=== PATIENT | female | born 1965 | race Caucasian/White ===

== ENCOUNTER → 2016-08-28 | Outpatient (REF) | payer OTHER, SELFPAY | LOC: M LAB REF 16:15 → EEVIPCON 16:15 | PROVIDERS: ATTEND Physician Assistant | DX: L03.114 Cellulitis of left upper limb (principal) ==

== ENCOUNTER → 2018-05-08 | Outpatient (CLI) | payer OTHER ==
[~2018-05-08] MED LIST: EFFE150C2; PERC5TAB12 PO
--- NOTE | 2018-05-12 09:17 | REP ---
MR LUMBAR SPINE WITHOUT CONTRAST: HISTORY: L1 fracture. COMPARISON: 03/14/2017 Decrease signal intensity on T2-weighted images is present in the T12-L1, L1-2 and L4-5 intervertebral discs. The discs are decreased in height. These findings are consistent with disc degeneration. There is no disc bulge or herniation at the L1-2 through L3-4 and L5-S1 levels. There is hypertrophy of the posterior articulating facets at the L3-4 and L5-S1 levels. The nerves exit the neural foramina without compression. A diffuse disc bulge is present at the L4-5 level. There is minimal compression of the thecal sac. There is hypertrophy of the posterior articulating facets. The L4 nerves exit the neural foramina without compression. The conus medullaris is normal in appearance terminating at the level of the T12-L1 intervertebral disc. Increased signal intensity on T2-weighted images is present in the endplates of the L4 and 5 vertebral bodies. This represents degenerative change. There is an old compression fracture of the L1 vertebral body with mild height loss. There is no subluxation. IMPRESSION: 1. Diffuse disc bulge at the L4-5 level with minimal thecal sac compression. 2. Old L1 compression fracture with mild height loss. Electronically Signed by Jason Wayne MD 05/12/2018 09:28 A
== END ==
LOC: M RAD 12:01
PROVIDERS: ATTEND Physician Assistant
DX: S32.010D Wedge compression fracture of first lumbar vertebra, subsequent encounter for fracture with routine healing (principal); M51.26 Other intervertebral disc displacement, lumbar region; X58.XXXD Exposure to other specified factors, subsequent encounter; Y92.9 Unspecified place or not applicable

== ENCOUNTER → 2018-06-04 | Outpatient (REF) | payer OTHER ==
[2018-06-04 13:21] LABS: COLLAGEN EPINEPHRINE 80 SECONDS (74-162)
[2018-06-04 13:23] LABS: INR 1.06; PARTIAL THROMBOPLASTIN TIME 28.5 SECONDS (25.4-37.6); PROTHROMBIN TIME 13.9 SECONDS (12.1-14.4)
== END ==
LOC: M LABDRAW1 12:47
PROVIDERS: ATTEND Physical Medicine & Rehabilitation
DX: Z01.818 Encounter for other preprocedural examination (principal); M47.816 Spondylosis without myelopathy or radiculopathy, lumbar region

== ENCOUNTER 2019-04-06 08:04 | Outpatient (RCR) | payer MEDICAID, OTHER | END 2019-04-09 | LOC: M PT 08:04 | PROVIDERS: ATTEND Physician Assistant | DX: Z47.89 Encounter for other orthopedic aftercare (principal) ==

== ENCOUNTER → 2019-04-08 | Outpatient (REF) | payer OTHER | LOC: M LAB LCGH 11:43 | PROVIDERS: ATTEND Physician Assistant | DX: Z12.4 Encounter for screening for malignant neoplasm of cervix (principal) ==

== ENCOUNTER 2019-04-21 08:15 | Outpatient (RCR) | payer OTHER | END 2019-05-10 | LOC: M PT 08:15 | PROVIDERS: ATTEND Physician Assistant | DX: M16.12 Unilateral primary osteoarthritis, left hip (principal); M51.36 Other intervertebral disc degeneration, lumbar region ==

== ENCOUNTER → 2019-11-02 | Outpatient (CLI) | payer OTHER ==
[~2019-11-02] MED LIST changes: +E-Z-GAS II EFFERVESCENT PACKET (SODIUM BICARB./CITRIC ACID/SIMETHICONE) As Ordered ONE; +E-Z-HD 98% w/w 340GM SUSP BTL As Ordered ONE; +E-Z-PAQUE 96% w/w SUSP 176GM BTL As Ordered ONE
--- NOTE | 2019-11-02 19:58 | REP ---
Examination Requested: Upper G.I. Series With KUB Reason For Exam: Morbid obesity, status post gastric lap band Upper GI The procedure was performed by NELLI Hoover, under the direct supervision of Dr. Mansfield. The images were reviewed with Dr. Mansfield. The machine sprayer film shows no organomegaly or pathological masses. The intestinal gas pattern appears normal. Liquid barium was given in the erect position as well as liquid barium in the prone oblique position in order to perform a single contrast upper GI examination. The oral and pharyngeal stages of deglutition were unremarkable. Esophageal transport is efficient and there is no esophagitis, stricture, or mucosal ring noted. There is no hiatal hernia. Gastroesophageal reflux was visualized to the level of the faby. The stomach martinez are normally outlined. The lap band is visualized. The rugal folds are smooth and regular. There is no gastritis, neoplasm, ulcer disease noted. The duodenal martinez are normally outlined. The mucosal folds are smooth and regular. There is no duodenitis, peptic ulcer disease, or neoplasm noted. The visualized portion of the proximal small bowel appears normal in course and caliber. Impression: 1. Gastroesophageal reflux to the level of the faby. 0.6 minutes of fluoroscopy time was utilized for this procedure. Some fluoroscopic images are performed with last image hold technology. These images require no additional radiation. Reviewed by NELLI Joseph 11/02/2019 03:48 P Electronically Signed by Frank Mansfield MD 11/02/2019 07:50 P
== END ==
LOC: M RAD 07:54
PROVIDERS: ATTEND Surgery
DX: Z98.84 Bariatric surgery status (principal); E66.01 Morbid (severe) obesity due to excess calories

== ENCOUNTER 2022-06-19 16:42 | Inpatient (IN) | payer MEDICARE, OTHER ==
[~2022-06-19] VITALS: Ht 167.6 cm; Wt 172.3 kg
[~2022-06-19 16:42] MED LIST changes: -E-Z-GAS II EFFERVESCENT PACKET (SODIUM BICARB./CITRIC ACID/SIMETHICONE) As Ordered ONE; -E-Z-HD 98% w/w 340GM SUSP BTL As Ordered ONE; -E-Z-PAQUE 96% w/w SUSP 176GM BTL As Ordered ONE
[2022-06-19 18:22] LABS: BASO % 0.4 % (0.0-1.0); EOS # 0.4 10^3/uL (0.0-0.5); EOS % 3.9 % (0.0-3.0); HEMATOCRIT 35.2 % (36.0-47.0); LYMPH # 1.6 10^3/uL (1.5-5.0); LYMPH % 16.8 % (24.0-44.0); MEAN CORPUSCULAR HEMOGLOBIN 26.3 pg (27.0-33.0); MEAN CORPUSCULAR HGB CONC 31.3 g/dl (32.0-36.5); MONO # 0.8 10^3/uL (0.0-0.8); MONO % 8.1 % (2.0-8.0); NEUTROPHILS # 6.7 10^3/uL (1.5-8.5); NEUTROPHILS % 70.4 % (36.0-66.0); PLATELET COUNT, AUTOMATED 406 10^3/uL (150-450); RED BLOOD COUNT 4.19 10^6/uL (4.00-5.40); WHITE BLOOD COUNT 9.6 10^3/uL (4.0-10.0)
[2022-06-19 18:36] LABS: CPK CREATINE PHOSPHOKINASE 198 U/L (34-145)
[2022-06-19 18:37] LABS: ALKALINE PHOSPHATASE 108 U/L (46-116); ALT/SGPT 31 U/L (7.0-40); AST/SGOT 26 U/L (<34); BILIRUBIN,DIRECT 0.3 MG/DL (<0.4); BILIRUBIN,TOTAL 0.5 MG/DL (0.3-1.2); BLOOD UREA NITROGEN 10 MG/DL (9-23); CALCIUM LEVEL 8.4 MG/DL (8.5-10.1); CARBON DIOXIDE LEVEL 28 MMOL/L (20-31); CHLORIDE LEVEL 102 MMOL/L (98-107); CREATININE FOR GFR 0.82 MG/DL (0.55-1.30); GLOMERULAR FILTRATION RATE > 60.0 (>51); GLUCOSE, FASTING 105 MG/DL (60-100); POTASSIUM SERUM 3.9 MMOL/L (3.5-5.1); SODIUM LEVEL 135 MMOL/L (136-145); TOTAL PROTEIN 6.6 G/DL (5.7-8.2)
[2022-06-19 18:39] LABS: THYROID STIMULATING HORMONE 1.186 uIU/ML (0.55-4.78)
[2022-06-19 18:43] LABS: RSV AMPLIFICATION NEGATIVE (NEGATIVE)
[2022-06-19] MEDS ORDERED: PERCOCET 5MG/325MG TAB PO ONE (19:50)
[2022-06-19] MEDS ORDERED: OMEP40CA5 PO (20:51)
[2022-06-19] MEDS ORDERED: HYLANDS LEG CRAMPS PO (20:51)
[2022-06-19] MEDS ORDERED: DIPH-329 PO (20:51)
[2022-06-19] MEDS ORDERED: ADVI200C8 PO (20:51)
[2022-06-19] MEDS ORDERED: GABA-282 PO (20:51)
[2022-06-19] MEDS ORDERED: DULO1CAP6 PO (20:51)
[2022-06-19] MEDS ORDERED: GABA600T4 PO (20:51)
[2022-06-19] MEDS ORDERED: VITA500054 PO (20:51)
[2022-06-19] MEDS ORDERED: HYDR50TA70 PO (20:51)
[2022-06-19] MEDS ORDERED: HOME MED LIST COMPLETE! XX SCH (20:55)
[2022-06-19] MEDS: GABAPENTIN 300 MG CAP PO SCH (22:18)
[2022-06-19] MEDS: hydrOXYzine 50 MG TAB PO SCH (22:18)
[2022-06-20 00:40] VITALS: BP 160/90
[2022-06-20] MEDS ORDERED: carisoprodoL 350 MG TAB PO ONE (02:00)
[2022-06-20] MEDS: LIDOCAINE 5% (LIDODERM) PATCH TD SCH ×2 (02:01→20:30)
[2022-06-20 06:00] VITALS: BP 159/90
[2022-06-20 06:04] LABS: HEMATOCRIT 33.4 % (36.0-47.0); HEMOGLOBIN 10.3 g/dl (12.0-15.5)
[2022-06-20] MEDS: HEPARIN SOD (PORCINE) 5000UNITS/ML 1ML VIAL/SYRINGE SC SCH ×3 (06:04→20:30)
[2022-06-20] MEDS: ACETAMINOPHEN TAB 650MG DOSE (2X325MG) PO PRN ×2 (09:55→17:06)
[2022-06-20] MEDS: DULoxetine 30MG CAPSULE (CYMBALTA) PO SCH (09:56)
[2022-06-20] MEDS: CYCLOBENZAPRINE 5MG TABLET PO PRN ×2 (12:32→20:32)
[2022-06-20] MEDS: OMEPRAZOLE 20MG CAP PO SCH (12:32)
[2022-06-20 15:00] VITALS: BP 127/60
[2022-06-20] MEDS: GABAPENTIN 300 MG CAP PO SCH ×2 (17:06→20:31)
[2022-06-20] MEDS ORDERED: MORPHINE 2 MG/ML 1ML VIAL IV ONE (17:30)
[2022-06-20] MEDS ORDERED: LIDOCAINE 4% CREAM 5GM (LMX4) TOP ONE (17:30)
[2022-06-20] MEDS: MORPHINE 2 MG/ML 1ML VIAL IV PRN (20:31)
[2022-06-20] MEDS: hydrOXYzine 50 MG TAB PO SCH (20:31)
[2022-06-20] MEDS ORDERED: GABAPENTIN 300 MG CAP PO SCH (21:00)
[2022-06-20 22:00] VITALS: BP 140/77
[2022-06-21] MEDS: HEPARIN SOD (PORCINE) 5000UNITS/ML 1ML VIAL/SYRINGE SC SCH ×3 (05:47→20:32)
[2022-06-21] MEDS: MORPHINE 2 MG/ML 1ML VIAL IV PRN (05:48)
[2022-06-21 06:00] VITALS: BP 137/73
[2022-06-21 07:04] LABS: BASO % 0.7 % (0.0-1.0); EOS # 0.5 10^3/uL (0.0-0.5); EOS % 7.5 % (0.0-3.0); HEMATOCRIT 33.2 % (36.0-47.0); HEMOGLOBIN 10.4 g/dl (12.0-15.5); LYMPH # 1.8 10^3/uL (1.5-5.0); LYMPH % 29.9 % (24.0-44.0); MEAN CORPUSCULAR HEMOGLOBIN 26.5 pg (27.0-33.0); MEAN CORPUSCULAR HGB CONC 31.3 g/dl (32.0-36.5); MEAN CORPUSCULAR VOLUME 84.7 fl (80.0-96.0); MONO # 0.5 10^3/uL (0.0-0.8); NEUTROPHILS # 3.2 10^3/uL (1.5-8.5); NEUTROPHILS % 53.6 % (36.0-66.0); PLATELET COUNT, AUTOMATED 372 10^3/uL (150-450); RED BLOOD COUNT 3.92 10^6/uL (4.00-5.40)
[2022-06-21 07:35] LABS: ALBUMIN 2.5 G/DL (3.2-5.2); ALKALINE PHOSPHATASE 96 U/L (46-116); ALT/SGPT 24 U/L (7.0-40); AST/SGOT 19 U/L (<34); BILIRUBIN,TOTAL 0.5 MG/DL (0.3-1.2); BLOOD UREA NITROGEN 10 MG/DL (9-23); CALCIUM LEVEL 7.9 MG/DL (8.5-10.1); CARBON DIOXIDE LEVEL 28 MMOL/L (20-31); CHLORIDE LEVEL 100 MMOL/L (98-107); CREATININE FOR GFR 0.71 MG/DL (0.55-1.30); GLOMERULAR FILTRATION RATE > 60.0 (>51); GLUCOSE, FASTING 98 MG/DL (60-100); MAGNESIUM LEVEL 1.9 MG/DL (1.8-2.4); POTASSIUM SERUM 4.1 MMOL/L (3.5-5.1); SODIUM LEVEL 136 MMOL/L (136-145); TOTAL PROTEIN 5.8 G/DL (5.7-8.2)
[2022-06-21] MEDS: GABAPENTIN 300 MG CAP PO SCH ×3 (09:17→20:32)
[2022-06-21] MEDS: OMEPRAZOLE 20MG CAP PO SCH (09:17)
[2022-06-21] MEDS: DULoxetine 30MG CAPSULE (CYMBALTA) PO SCH (09:17)
[2022-06-21 11:13] LABS: APPEARANCE, URINE MANUAL CLEAR (CLEAR); COLOR, URINE MANUAL YELLOW (YELLOW)
[2022-06-21 11:15] LABS: BILIRUBIN, URINE MANUAL NEGATIVE (NEGATIVE); BLOOD URINE MANUAL POSITIVE (NEGATIVE); GLUCOSE, URINE (UA) MANUAL NEGATIVE (NEGATIVE); KETONE, URINE MANUAL NEGATIVE (NEGATIVE); LEUKOCYTE ESTERASE, URINE MAN NEGATIVE (NEGATIVE); NITRITE, URINE MANUAL NEGATIVE (NEGATIVE); PROTEIN, URINE MANUAL NEGATIVE (NEGATIVE); UROBILINOGEN, URINE MANUAL 4 MG mg/dl (NORMAL)
[2022-06-21 11:26] LABS: BACTERIA, URINE MOD AMOUNT; HYALINE CAST, URINE 0-1 /lpf (0-1); MUCUS, URINE LARGE AMOUNT (NEGATIVE); SQUAMOUS EPITHELIAL CELL URINE LARGE AMOUNT /hpf (SMALL AMT)
[2022-06-21 15:00] VITALS: BP 156/87
[2022-06-21] MEDS: hydrOXYzine 50 MG TAB PO SCH (20:32)
[2022-06-21] MEDS: DOXYCYCLINE HYCLATE 100MG TABLET PO SCH (20:32)
[2022-06-21] MEDS: LIDOCAINE 5% (LIDODERM) PATCH TD SCH (20:33)
[2022-06-21] MEDS: BACITRACIN OINTMENT 30GM TUBE TOP SCH (20:59)
[2022-06-21 21:38] VITALS: BP 143/85
[2022-06-21] MEDS: CYCLOBENZAPRINE 5MG TABLET PO PRN (23:01)
[2022-06-22 06:00] VITALS: BP 139/82
[2022-06-22] MEDS: HEPARIN SOD (PORCINE) 5000UNITS/ML 1ML VIAL/SYRINGE SC SCH ×3 (06:13→20:41)
[2022-06-22 06:45] LABS: BASO # 0.1 10^3/uL (0.0-0.2); BASO % 1.1 % (0.0-1.0); EOS # 0.4 10^3/uL (0.0-0.5); EOS % 7.8 % (0.0-3.0); HEMATOCRIT 34.9 % (36.0-47.0); HEMOGLOBIN 10.8 g/dl (12.0-15.5); LYMPH # 1.8 10^3/uL (1.5-5.0); LYMPH % 39.7 % (24.0-44.0); MEAN CORPUSCULAR HEMOGLOBIN 26.3 pg (27.0-33.0); MEAN CORPUSCULAR HGB CONC 30.9 g/dl (32.0-36.5); MEAN CORPUSCULAR VOLUME 85.1 fl (80.0-96.0); MONO # 0.4 10^3/uL (0.0-0.8); MONO % 9.4 % (2.0-8.0); NEUTROPHILS # 1.9 10^3/uL (1.5-8.5); NEUTROPHILS % 41.6 % (36.0-66.0); PLATELET COUNT, AUTOMATED 374 10^3/uL (150-450); WHITE BLOOD COUNT 4.5 10^3/uL (4.0-10.0)
[2022-06-22 06:59] LABS: ERYTHROCYTE SEDIMENTATION RATE 43 mm/hr (0-30)
[2022-06-22 07:14] LABS: BLOOD UREA NITROGEN 10 MG/DL (9-23); CALCIUM LEVEL 7.7 MG/DL (8.5-10.1); CARBON DIOXIDE LEVEL 28 MMOL/L (20-31); CHLORIDE LEVEL 100 MMOL/L (98-107); CREATININE FOR GFR 0.75 MG/DL (0.55-1.30); GLOMERULAR FILTRATION RATE > 60.0 (>51); GLUCOSE, FASTING 100 MG/DL (60-100); POTASSIUM SERUM 4.5 MMOL/L (3.5-5.1); SODIUM LEVEL 134 MMOL/L (136-145)
[2022-06-22] MEDS: GABAPENTIN 300 MG CAP PO SCH ×3 (08:52→20:40)
[2022-06-22] MEDS: DULoxetine 30MG CAPSULE (CYMBALTA) PO SCH (08:52)
[2022-06-22] MEDS: DOXYCYCLINE HYCLATE 100MG TABLET PO SCH ×2 (08:52→20:39)
[2022-06-22] MEDS: BACITRACIN OINTMENT 30GM TUBE TOP SCH (08:52)
[2022-06-22] MEDS: OMEPRAZOLE 20MG CAP PO SCH (08:52)
[2022-06-22] MEDS: LACTOBACILLUS ACIDOPHILUS CAP (BACID) PO SCH ×2 (08:52→17:11)
[2022-06-22] MEDS: CYCLOBENZAPRINE 5MG TABLET PO PRN ×2 (11:31→20:40)
[2022-06-22 14:30] VITALS: BP 135/84
[2022-06-22] MEDS ORDERED: IBUPROFEN 600MG TAB PO PRN (14:35)
[2022-06-22] MEDS: ACETAMINOPHEN TAB 650MG DOSE (2X325MG) PO PRN (14:38)
[2022-06-22] MEDS: hydrOXYzine 50 MG TAB PO SCH (20:40)
[2022-06-22] MEDS: LIDOCAINE 5% (LIDODERM) PATCH TD SCH (20:41)
[2022-06-22 22:00] VITALS: BP 132/86
[2022-06-23] MEDS: HEPARIN SOD (PORCINE) 5000UNITS/ML 1ML VIAL/SYRINGE SC SCH ×3 (05:21→21:30)
[2022-06-23 06:00] VITALS: BP 132/81
[2022-06-23] MEDS: DOXYCYCLINE HYCLATE 100MG TABLET PO SCH ×2 (09:31→21:29)
[2022-06-23] MEDS: DULoxetine 30MG CAPSULE (CYMBALTA) PO SCH (09:31)
[2022-06-23] MEDS: LACTOBACILLUS ACIDOPHILUS CAP (BACID) PO SCH ×2 (09:31→17:41)
[2022-06-23] MEDS: GABAPENTIN 300 MG CAP PO SCH ×3 (09:31→21:29)
[2022-06-23] MEDS: OMEPRAZOLE 20MG CAP PO SCH (09:31)
[2022-06-23] MEDS: BACITRACIN OINTMENT 30GM TUBE TOP SCH (09:32)
[2022-06-23 14:00] VITALS: BP 130/83
[2022-06-23] MEDS: CYCLOBENZAPRINE 5MG TABLET PO PRN (17:41)
[2022-06-23] MEDS: hydrOXYzine 50 MG TAB PO SCH (21:29)
[2022-06-23] MEDS: LIDOCAINE 5% (LIDODERM) PATCH TD SCH (21:30)
[2022-06-23] MEDS: MORPHINE 2 MG/ML 1ML VIAL IV PRN (21:31)
[2022-06-23 22:00] VITALS: BP 123/67
[2022-06-24] MEDS: MORPHINE 2 MG/ML 1ML VIAL IV PRN (02:30)
[2022-06-24] MEDS: HEPARIN SOD (PORCINE) 5000UNITS/ML 1ML VIAL/SYRINGE SC SCH ×3 (05:26→21:26)
[2022-06-24 06:10] VITALS: BP 115/72
[2022-06-24] MEDS ORDERED: HYDROMORPHONE HCL 0.5 MG/ 0.5 ML SYRINGE IV ONE (08:00)
[2022-06-24] MEDS ORDERED: MORPHINE 30 MG TAB **MSIR PO ONE (08:30)
[2022-06-24 09:00] VITALS: BP 122/68
[2022-06-24] MEDS: BACITRACIN OINTMENT 30GM TUBE TOP SCH (09:00)
[2022-06-24] MEDS: LACTOBACILLUS ACIDOPHILUS CAP (BACID) PO SCH ×2 (09:16→17:10)
[2022-06-24] MEDS: DULoxetine 30MG CAPSULE (CYMBALTA) PO SCH (09:17)
[2022-06-24] MEDS: DOXYCYCLINE HYCLATE 100MG TABLET PO SCH ×2 (09:17→21:23)
[2022-06-24] MEDS: OMEPRAZOLE 20MG CAP PO SCH (09:17)
[2022-06-24] MEDS: GABAPENTIN 300 MG CAP PO SCH ×3 (09:18→21:23)
[2022-06-24] MEDS: IBUPROFEN 400MG TAB PO SCH ×4 (09:19→21:22)
[2022-06-24] MEDS: ACETAMINOPHEN 500 MG TAB PO SCH ×2 (14:26→21:23)
[2022-06-24 21:20] VITALS: BP 126/89
[2022-06-24] MEDS: hydrOXYzine 50 MG TAB PO SCH (21:22)
[2022-06-24] MEDS: LIDOCAINE 5% (LIDODERM) PATCH TD SCH (21:24)
[2022-06-25 05:22] VITALS: BP 107/71
[2022-06-25] MEDS: ACETAMINOPHEN 500 MG TAB PO SCH ×3 (05:24→21:48)
[2022-06-25] MEDS: HEPARIN SOD (PORCINE) 5000UNITS/ML 1ML VIAL/SYRINGE SC SCH ×3 (05:25→21:47)
[2022-06-25] MEDS ORDERED: MORPHINE 30 MG TAB **MSIR PO ONE (07:40)
[2022-06-25] MEDS: LACTOBACILLUS ACIDOPHILUS CAP (BACID) PO SCH ×2 (08:18→17:24)
[2022-06-25] MEDS: OMEPRAZOLE 20MG CAP PO SCH (08:18)
[2022-06-25] MEDS: GABAPENTIN 300 MG CAP PO SCH ×3 (08:20→21:47)
[2022-06-25] MEDS: DOXYCYCLINE HYCLATE 100MG TABLET PO SCH ×2 (08:22→21:48)
[2022-06-25] MEDS: DULoxetine 30MG CAPSULE (CYMBALTA) PO SCH (08:23)
[2022-06-25] MEDS: IBUPROFEN 400MG TAB PO SCH ×4 (08:23→21:48)
[2022-06-25] MEDS: BACITRACIN OINTMENT 30GM TUBE TOP SCH ×2 (08:23→08:25)
[2022-06-25 14:00] VITALS: BP 124/73
[2022-06-25] MEDS: LIDOCAINE 5% (LIDODERM) PATCH TD SCH (21:47)
[2022-06-25] MEDS: hydrOXYzine 50 MG TAB PO SCH (21:48)
[2022-06-26] MEDS: HEPARIN SOD (PORCINE) 5000UNITS/ML 1ML VIAL/SYRINGE SC SCH ×3 (06:06→21:17)
[2022-06-26] MEDS: ACETAMINOPHEN 500 MG TAB PO SCH ×3 (06:07→21:16)
[2022-06-26 06:30] VITALS: BP 122/66
[2022-06-26] MEDS ORDERED: MORPHINE 30 MG TAB **MSIR PO ONE (06:55)
[2022-06-26 07:49] VITALS: BP 120/72
[2022-06-26] MEDS: BACITRACIN OINTMENT 30GM TUBE TOP SCH (09:00)
[2022-06-26] MEDS: DULoxetine 30MG CAPSULE (CYMBALTA) PO SCH (09:07)
[2022-06-26] MEDS: LACTOBACILLUS ACIDOPHILUS CAP (BACID) PO SCH ×2 (09:10→17:14)
[2022-06-26] MEDS: OMEPRAZOLE 20MG CAP PO SCH (09:10)
[2022-06-26] MEDS: GABAPENTIN 300 MG CAP PO SCH ×3 (09:11→21:15)
[2022-06-26] MEDS: DOXYCYCLINE HYCLATE 100MG TABLET PO SCH ×2 (09:13→21:15)
[2022-06-26] MEDS: IBUPROFEN 400MG TAB PO SCH ×4 (09:13→21:16)
[2022-06-26 14:00] VITALS: BP 124/83
[2022-06-26] MEDS ORDERED: MILKSUS3 PO (14:23)
[2022-06-26] MEDS ORDERED: ACET-683 PO (14:23)
[2022-06-26] MEDS ORDERED: GABA-282 PO ×2 (14:23)
[2022-06-26] MEDS ORDERED: IBUP-1114 PO (14:23)
[2022-06-26] MEDS ORDERED: MIRA3350 PO (14:23)
[2022-06-26] MEDS ORDERED: DOXY100T PO (14:23)
[2022-06-26] MEDS ORDERED: LIDO5TD TD (14:23)
[2022-06-26] MEDS ORDERED: RISATAB3 PO (14:23)
[2022-06-26] MEDS ORDERED: SENO8.6T10 PO (14:23)
[2022-06-26] MEDS ORDERED: MSIR30TA PO (14:23)
[2022-06-26] MEDS: MORPHINE 30 MG TAB **MSIR PO PRN (17:14)
[2022-06-26 20:58] VITALS: BP 127/83
[2022-06-26] MEDS: hydrOXYzine 50 MG TAB PO SCH (21:16)
[2022-06-26] MEDS: LIDOCAINE 5% (LIDODERM) PATCH TD SCH (21:17)
[2022-06-27] MEDS: MORPHINE 30 MG TAB **MSIR PO PRN ×3 (03:47→21:32)
[2022-06-27] MEDS: ACETAMINOPHEN 500 MG TAB PO SCH ×3 (06:01→21:32)
[2022-06-27] MEDS: HEPARIN SOD (PORCINE) 5000UNITS/ML 1ML VIAL/SYRINGE SC SCH ×3 (06:03→21:33)
[2022-06-27 06:24] VITALS: BP 105/58
[2022-06-27] MEDS: DULoxetine 30MG CAPSULE (CYMBALTA) PO SCH (08:46)
[2022-06-27] MEDS: GABAPENTIN 300 MG CAP PO SCH ×3 (08:46→21:26)
[2022-06-27] MEDS: LACTOBACILLUS ACIDOPHILUS CAP (BACID) PO SCH ×2 (08:46→18:04)
[2022-06-27] MEDS: OMEPRAZOLE 20MG CAP PO SCH (08:47)
[2022-06-27] MEDS: DOXYCYCLINE HYCLATE 100MG TABLET PO SCH ×2 (08:47→21:27)
[2022-06-27] MEDS: IBUPROFEN 400MG TAB PO SCH ×4 (08:47→21:27)
[2022-06-27 21:13] VITALS: BP 103/58
[2022-06-27] MEDS: hydrOXYzine 50 MG TAB PO SCH (21:27)
[2022-06-27] MEDS: LIDOCAINE 5% (LIDODERM) PATCH TD SCH (21:28)
[2022-06-28] MEDS: HEPARIN SOD (PORCINE) 5000UNITS/ML 1ML VIAL/SYRINGE SC SCH ×3 (05:37→21:49)
[2022-06-28] MEDS: ACETAMINOPHEN 500 MG TAB PO SCH ×3 (05:37→21:49)
[2022-06-28 06:00] VITALS: BP 119/74
[2022-06-28] MEDS: OMEPRAZOLE 20MG CAP PO SCH (08:58)
[2022-06-28] MEDS: DOXYCYCLINE HYCLATE 100MG TABLET PO SCH (08:58)
[2022-06-28] MEDS: GABAPENTIN 300 MG CAP PO SCH ×3 (08:58→21:50)
[2022-06-28] MEDS: LACTOBACILLUS ACIDOPHILUS CAP (BACID) PO SCH ×2 (08:58→18:39)
[2022-06-28] MEDS: DULoxetine 30MG CAPSULE (CYMBALTA) PO SCH (08:58)
[2022-06-28] MEDS: IBUPROFEN 400MG TAB PO SCH ×4 (08:58→21:50)
[2022-06-28] MEDS: MORPHINE 30 MG TAB **MSIR PO PRN ×2 (11:11→21:50)
[2022-06-28] MEDS: hydrOXYzine 50 MG TAB PO SCH (21:50)
[2022-06-28] MEDS: LIDOCAINE 5% (LIDODERM) PATCH TD SCH (21:51)
[2022-06-29] MEDS: HEPARIN SOD (PORCINE) 5000UNITS/ML 1ML VIAL/SYRINGE SC SCH ×3 (05:45→22:00)
[2022-06-29] MEDS: ACETAMINOPHEN 500 MG TAB PO SCH ×3 (05:45→21:59)
[2022-06-29 06:00] VITALS: BP 136/77
[2022-06-29] MEDS: LACTOBACILLUS ACIDOPHILUS CAP (BACID) PO SCH ×2 (09:05→18:42)
[2022-06-29] MEDS: DULoxetine 30MG CAPSULE (CYMBALTA) PO SCH (09:05)
[2022-06-29] MEDS: OMEPRAZOLE 20MG CAP PO SCH (09:05)
[2022-06-29] MEDS: IBUPROFEN 400MG TAB PO SCH ×4 (09:06→20:10)
[2022-06-29] MEDS: GABAPENTIN 300 MG CAP PO SCH ×3 (09:06→20:09)
[2022-06-29] MEDS: MORPHINE 30 MG TAB **MSIR PO PRN ×2 (09:07→18:43)
[2022-06-29] MEDS: hydrOXYzine 50 MG TAB PO SCH (20:10)
[2022-06-29] MEDS: LIDOCAINE 5% (LIDODERM) PATCH TD SCH (20:10)
[2022-06-30] MEDS: MORPHINE 30 MG TAB **MSIR PO PRN (02:34)
[2022-06-30] MEDS: ACETAMINOPHEN 500 MG TAB PO SCH (05:52)
[2022-06-30] MEDS: HEPARIN SOD (PORCINE) 5000UNITS/ML 1ML VIAL/SYRINGE SC SCH (05:52)
[2022-06-30 06:00] VITALS: BP 113/78
[2022-06-30] MEDS: OMEPRAZOLE 20MG CAP PO SCH (08:27)
[2022-06-30] MEDS: GABAPENTIN 300 MG CAP PO SCH (08:27)
[2022-06-30] MEDS: LACTOBACILLUS ACIDOPHILUS CAP (BACID) PO SCH (08:28)
[2022-06-30] MEDS: IBUPROFEN 400MG TAB PO SCH ×2 (08:28→13:06)
[2022-06-30] MEDS: DULoxetine 30MG CAPSULE (CYMBALTA) PO SCH (08:28)
[2022-06-30] MEDS ORDERED: MORPHINE 30 MG TAB **MSIR PO ONE (10:00)
== END 2022-06-30 14:40 | DRG 542 ==
LOC: M ED 16:42 → M ED INP 22:34 → M MS5PR 06-20 00:40
PROVIDERS: ADMIT Internal Medicine; ATTEND General Practice
PROC: 0T9B7ZZ Drainage of Bladder, Via Natural or Artificial Opening (ICD-10-PCS; principal; 2022-06-21)
DX: M48.56XA Collapsed vertebra, not elsewhere classified, lumbar region, initial encounter for fracture (principal); L89.323 Pressure ulcer of left buttock, stage 3; L89.213 Pressure ulcer of right hip, stage 3; L89.223 Pressure ulcer of left hip, stage 3; M62.82 Rhabdomyolysis; L03.113 Cellulitis of right upper limb; Z68.44 Body mass index [BMI] 60.0-69.9, adult; E66.01 Morbid (severe) obesity due to excess calories; M16.0 Bilateral primary osteoarthritis of hip; M17.0 Bilateral primary osteoarthritis of knee; R32 Unspecified urinary incontinence; R15.9 Full incontinence of feces; F41.9 Anxiety disorder, unspecified; F32.A Depression, unspecified; M48.00 Spinal stenosis, site unspecified; F17.290 Nicotine dependence, other tobacco product, uncomplicated; L30.4 Erythema intertrigo; R53.1 Weakness; R26.9 Unspecified abnormalities of gait and mobility; D64.9 Anemia, unspecified; M54.50 Low back pain, unspecified; G89.29 Other chronic pain; G47.33 Obstructive sleep apnea (adult) (pediatric); Z74.1 Need for assistance with personal care; Z74.09 Other reduced mobility; Z79.899 Other long term (current) drug therapy; Z88.8 Allergy status to other drugs, medicaments and biological substances; Z87.442 Personal history of urinary calculi

== ENCOUNTER 2022-11-08 16:23 | Emergency (ER) | payer MEDICARE, OTHER ==
[~2022-11-08] VITALS: Ht 167.6 cm; Wt 158.2 kg
[~2022-11-08 16:23] MED LIST changes: +ACET-683 PO; +ADVI200C8 PO; +DIPH-329 PO; +DOXY100T PO; +DULO1CAP6 PO; +GABA-282 PO; +GABA600T4 PO; +HYDR50TA70 PO; +HYLANDS LEG CRAMPS PO; +IBUP-1114 PO; +LIDO5TD TD; +MILKSUS3 PO; +MIRA3350 PO; +MSIR30TA PO; +OMEP40CA5 PO; +RISATAB3 PO; +SENO8.6T10 PO; +VITA500054 PO
[2022-11-08] MEDS ORDERED: MORPHINE 15 MG SA TAB PO ONE (17:35)
[2022-11-08] MEDS ORDERED: ONDANSETRON 4MG ORAL DISINTEGRATING TAB PO ONE (17:35)
[2022-11-08] MEDS ORDERED: MORPHINE 10 MG/ML 1ML VIAL IM ONE (17:35)
[2022-11-08] MEDS ORDERED: ONDA4TAB6 PO (17:49)
[2022-11-08] MEDS ORDERED: MORP1TAB19 PO (17:49)
[2022-11-08] MEDS ORDERED: MORPHINE 2 MG/ML 1ML VIAL IM ONE (18:20)
[2022-11-08 19:36] VITALS: BP 137/64; TEMP 98.8; O2SAT 98
== END 2022-11-08 19:36 | disposition home or self-care (01) ==
LOC: M ED 16:23
DX: F11.23 Opioid dependence with withdrawal (principal); M54.50 Low back pain, unspecified; F41.9 Anxiety disorder, unspecified; F32.A Depression, unspecified; F17.200 Nicotine dependence, unspecified, uncomplicated; Z88.8 Allergy status to other drugs, medicaments and biological substances; Z79.899 Other long term (current) drug therapy